=== PATIENT | male | born 1960 | race Caucasian/White ===

== ENCOUNTER → 2017-08-17 | Outpatient (CLI) | payer BC, OTHER ==
[~2017-08-17] MED LIST: ASPIRIN325 PO; ATORVASTATIN CA40 MG PO; LOVENOX40 MG/0.4 SQ; PERCOCET 10-321 EACH PO; PRINIVIL20 MG PO; REMERON15 MG PO; TRAMADOL HCL50 MG PO; UNASYN 3 GM VIAL3 G1 IV
== END ==
LOC: HYPER 08-16 08:58
DX: L89.313 Pressure ulcer of right buttock, stage 3 (principal); E78.5 Hyperlipidemia, unspecified; I10 Essential (primary) hypertension; G82.20 Paraplegia, unspecified

== ENCOUNTER → 2017-08-31 | Outpatient (CLI) | payer BC, OTHER | LOC: HYPER 06:54 | DX: L89.313 Pressure ulcer of right buttock, stage 3 (principal); G82.20 Paraplegia, unspecified; R26.2 Difficulty in walking, not elsewhere classified; D64.9 Anemia, unspecified; E78.5 Hyperlipidemia, unspecified; I10 Essential (primary) hypertension ==

== ENCOUNTER → 2017-09-07 | Outpatient (CLI) | payer BC, OTHER | LOC: HYPER 06:51 | DX: L89.313 Pressure ulcer of right buttock, stage 3 (principal); G82.20 Paraplegia, unspecified; R26.2 Difficulty in walking, not elsewhere classified; E78.5 Hyperlipidemia, unspecified; I10 Essential (primary) hypertension ==

== ENCOUNTER → 2017-09-21 | Outpatient (CLI) | payer BC, OTHER | LOC: HYPER 06:48 | DX: L89.313 Pressure ulcer of right buttock, stage 3 (principal); G82.20 Paraplegia, unspecified; E78.5 Hyperlipidemia, unspecified ==

== ENCOUNTER → 2017-10-25 | Outpatient (CLI) | payer BC, OTHER | LOC: HYPER 10-12 09:46 | DX: L89.313 Pressure ulcer of right buttock, stage 3 (principal); S24.101D Unspecified injury at T1 level of thoracic spinal cord, subsequent encounter; I10 Essential (primary) hypertension; E78.5 Hyperlipidemia, unspecified; G82.20 Paraplegia, unspecified; X58.XXXD Exposure to other specified factors, subsequent encounter ==

== ENCOUNTER → 2020-03-04 | Outpatient (CLI) | payer OTHER, BC | LOC: HYPER 13:48 | PROVIDERS: ATTEND Emergency Medicine | DX: L89.313 Pressure ulcer of right buttock, stage 3 (principal); S24.101D Unspecified injury at T1 level of thoracic spinal cord, subsequent encounter; E78.5 Hyperlipidemia, unspecified; G82.20 Paraplegia, unspecified; R26.2 Difficulty in walking, not elsewhere classified; I10 Essential (primary) hypertension; X58.XXXD Exposure to other specified factors, subsequent encounter ==

== ENCOUNTER → 2020-03-13 | Outpatient (CLI) | payer OTHER, BC | LOC: HYPER 09:35 | PROVIDERS: ATTEND Emergency Medicine | DX: L89.313 Pressure ulcer of right buttock, stage 3 (principal); S24.101D Unspecified injury at T1 level of thoracic spinal cord, subsequent encounter; E78.5 Hyperlipidemia, unspecified; G82.20 Paraplegia, unspecified; R26.2 Difficulty in walking, not elsewhere classified; I10 Essential (primary) hypertension; X58.XXXD Exposure to other specified factors, subsequent encounter ==

== ENCOUNTER → 2020-03-28 | Outpatient (CLI) | payer OTHER, BC | LOC: HYPER 09:11 | PROVIDERS: ATTEND Emergency Medicine | DX: L89.313 Pressure ulcer of right buttock, stage 3 (principal); S24.101D Unspecified injury at T1 level of thoracic spinal cord, subsequent encounter; E78.5 Hyperlipidemia, unspecified; G82.20 Paraplegia, unspecified; R26.2 Difficulty in walking, not elsewhere classified; I10 Essential (primary) hypertension; X58.XXXD Exposure to other specified factors, subsequent encounter ==